=== PATIENT | male | born 1980 ===

== ENCOUNTER 2022-02-13 18:28 | Emergency (ER) | payer SELFPAY ==
[2022-02-13] MEDS ORDERED: Lidocaine 1% 5 ML VIAL INJECT ONE ×2 (19:41→20:42)
[2022-02-13] MEDS ORDERED: Sodium Chloride 0.9% 1,000 ML IV ONE (20:34)
[2022-02-13] MEDS ORDERED: Morphine 4 MG/ML VIAL IVPUSH ONE (20:34)
[2022-02-13] MEDS ORDERED: Ondansetron 4 MG/2 ML SDV IVPUSH ONE (20:34)
[2022-02-13 20:42] LABS: CARBON DIOXIDE,CO2 27.6 mmol/L (21.0-32.0); POTASSIUM,K 3.6 mmol/L (3.5-5.1)
[2022-02-13] MEDS ORDERED: Phenylephrine 1% 10 MG/ML SDV STA ×2 (20:42→23:25)
[2022-02-13] MEDS ORDERED: Morphine 4 MG/ML VIAL ONE (21:16)
[2022-02-13] MEDS ORDERED: HYDROmorphone 1 MG/ML Syringe IVPUSH ONE (22:41)
[2022-02-13] MEDS ORDERED: Phenylephrine 1% 10 MG/ML SDV ONE (23:27)
== END 2022-02-14 01:32 | disposition home or self-care (01) ==
LOC: MW.ED 18:28
DX: N48.30 Priapism, unspecified (principal); Z20.822 Contact with and (suspected) exposure to COVID-19
CPT/HCPCS: 36415; 36600; 80048; 81003; 82803; 85025; 85610; 87635; 96374; 96375; 99284; J1170; J2270; J2370; J2405; J7030; U0002